=== PATIENT | female | born 1960 | race Caucasian/White ===

== ENCOUNTER → 2023-10-21 16:32 | Outpatient (REF) | payer BC, SELFPAY | LOC: HWWDC 16:32 | PROVIDERS: ATTENDING PHYSICIAN Nurse Practitioner Adult Health | DX: Z12.31 Encounter for screening mammogram for malignant neoplasm of breast (principal) | CPT/HCPCS: 77063; 77067 ==

== ENCOUNTER 2024-01-06 21:26 | Emergency (ER) | payer BC, SELFPAY ==
[2024-01-06 21:29] VITALS: BP 150/92
[2024-01-06 21:45] LABS: Urine Albumin 1+ (Neg - Trace); Urine Bilirubin Negative (Negative); Urine Character Very Cloudy (Clear); Urine Color Yellow; Urine Glucose Negative (Negative); Urine Ketone 1+ (Negative); Urine Leukocyte 2+ (Negative); Urine Nitrite Negative (Negative); Urine Occult Blood 4+ (Negative); Urine Specific Gravity 1.025 (<1.030); Urine Urobilinogen Negative (Neg - 1+)
[2024-01-06 21:50] LABS: Urine Squamous Cell 0-2 /LPF (Few)
[2024-01-06 21:52] LABS: Urine Bacteria Few (Negative); Urine White Cell 70-80 /HPF (0-5)
--- NOTE | 2024-01-06 22:37 | ED.GENMED ---
History of Present Illness
General
Chief Complaint: Urinary Symptoms
Source: patient
Exam Limitations: none
Time Seen by Provider: 01/06/24 22:05
Nursing documentation reviewed up to this point in time: agreed with
History of Present Illness
History of Present Illness:
This a pleasant 63-year-old female that presents with urinary tract infection. She has had UTI symptoms for the last few weeks. She was seen by her urologist who started her on fosfomycin. She states that that did not work. She next got Macrobid
from urgent care. She started it and was told after the culture came back it was ineffective so she was started on Augmentin. She took the full course of Augmentin and did have some brief relief, but symptoms started several days after the course
was completed. She denies fever, chills, nausea or vomiting.
Past History
Past History
ED Past Medical History: Cancer (Skin cancer), Psychiatric (Anxiety) and Other (Ovarian cysts, UTI, stress incontinence)
ED Past Surgical History: Gynecological (Hysterectomy)
Social History
Tobacco: Non-smoker
Personal:
Living: with family
Employment: Employed
Family History
Family History: Other (Noncontributory)
Review of Systems
Review of Systems
Allergies reviewed?: Yes
All Other Systems: ROS reviewed and negative except as documented in HPI and ROS
Constitutional: Reports no symptoms
EENT: Reports no symptoms
Respiratory: Reports no symptoms
Cardiac: Reports no symptoms
ABD/GI: Reports no symptoms
: Reports dysuria, frequency and urgency
Musculoskeletal: Reports no symptoms
Skin: Reports no symptoms
Neurological: Reports no symptoms
Endocrine: Reports no symptoms
Hematologic/Lymphatic: Reports no symptoms
Psychiatric: Reports anxiety
Phy Exam
General Physical Exam
General Presentation: well appearing and no apparent distress
General Skin: warm and dry
General Habitus: normal
General Mental: alert
General Hydration: appears well hydrated
ENT Exam
ENT Exam: EOMI, pharynx normal, neck supple and normocephalic
Eye Exam
Eye Exam: PERRL, cornea clear and conjunctiva normal
Cardiovascular Exam
Cardiovascular Exam: regular rate/rhythm, no edema, no murmur and normal peripheral pulses
Pulmonary Exam
Pulmonary Exam: lungs clear, no respiratory distress, no rales, no crackles, no rhonchi, no stridor, no wheezing and no cough
Neurological Exam
Neurological Exam: alert, oriented x3, no motor deficits and speech normal
Musculoskeletal Exam
Musculoskeletal Exam: full ROM and no edema
Skin Exam
Skin Exam: normal color, warm/dry, no rash and no petechia
Psychiatric Exam
Psychiatric Exam: normal mood/affect
Course
Orders/Labs/Results
Orders:
Orders
01/06/24 21:38
Urinalysis Reflex To Culture Urgent
Date Specimen was Collected: 01/06/24
Time Specimen was Collected: 21:36
Urine Microscopic Reflex Cult Urgent
Urine Culture Urgent
SULEIMAN Source: U
Specimen Description:
Date Specimen was Collected: 01/06/24
Time Specimen was Collected: 21:36
01/06/24 22:49
Ceftriaxone Sodium [Rocephin] 1,000 mg IM NOW STA
01/06/24 22:52
Sterile Water [Sterile Water For Injection] 10 ml .ROUTE .[facility]
Abnormal Lab Results
01/06/24
21:38
Urine Ketones 1+ A
(Negative)
Ur Occult Blood Reflex 4+ A
(Negative)
Leukocyte Esterase Rfl 2+ A
(Negative)
Urine RBC 11-15 A /HPF
(0-2)
Urine WBC (Reflex) 70-80 A /HPF
(0-5)
Urine Bacteria (Reflex) Few A
(Negative)
Urine Albumin (Reflex) 1+ A
(Neg - Trace)
Vital Signs
Initial and Last Documented VS:
Initial Vital Signs
Temp Pulse Resp BP Pulse Ox
98.4 F 102 24 150/92 100
01/06/24 21:29 01/06/24 21:29 01/06/24 21:29 01/06/24 21:29 01/06/24 21:29
Last Documented Vital Signs
Temp Pulse Resp BP Pulse Ox
98.4 F 102 24 150/92 100
01/06/24 21:29 01/06/24 21:29 01/06/24 21:29 01/06/24 21:29 01/06/24 21:29
*Critical Care Note
Total Time (30-74mins, 75-104mins- exclusive of procedures): Not Applicable
ED Attending Note
-
Portions of this chart may have been created with voice recognition software.� Occasional wrong word or��sound alike� substitutions may have occurred due to the inherent limitations of voice recognition software.
Discharge Plan
Departure
Patient Disposition: Home (Routine Discharge)
Date of Disposition: 01/06/24
Time of Disposition: 22:52
Patient with high blood pressure during this ER visit?: Yes
Discharge Problem:
UTI (urinary tract infection)
Instructions: Urinary Tract Infection, Adult (DC), Blood in the Urine (Hematuria), Adult (DC), BLOOD PRESSURE
Prescriptions:
New
cephalexin 500 mg tablet
500 mg PO Q12H 10 Days Qty: 20 0RF
No Action
multivitamin [One Daily Essential] 1 EACH tablet
1 ea PO DAILY
cranberry 500 MG capsule
500 mg PO DAILY
omega [id number] oil [Fish Oil] 1 EACH capsule
1 ea PO DAILY
amoxicillin-pot clavulanate 1 TABLET tablet
1 tab PO Q12 Qty: 10 0RF
lisinopril 10 MG tablet
10 mg PO DAILY Qty: 30 0RF
Referrals:
Jaki Chapman CRNP [Family Provider] -
Activity Restrictions/Additional Instructions:
[Your prescriptions were sent electronically to the pharmacy that you specified.]
It was a pleasure meeting you and taking part in your care. We hope for your continued healing and wellness.
Please read discharge instructions in their entirety. However, they are for general education and may not describe your exact diagnosis at discharge. Information on your ER visit and medical conditions were discussed with you along with appropriate
follow up information...
If indicated, please take your medications as instructed and indicated on discharge paperwork.
Please schedule a follow up appointment as directed. Call to schedule an appointment
Please return to the emergency department with ANY change in, persisting, or worsening of symptoms. If any of your symptoms do not improve, or persist, or become more severe within 6-12 hours, please return to the emergency department for further
care.
Please return to the emergency department if you develop a headache, neck pain/stiffness, fever greater than 100.4F, chest pain, shortness of breath, persistent nausea, vomiting, slurred speech, difficulty walking, numbness/tingling, weakness, signs
of infection or any other symptoms that are worrisome to you.
If you have any questions or concerns please do not hesitate to call the Hospital at or E-mail me directly at [email or web address]
Interventions
Interventions:
*Risk Screen - Suicide Last Done: 01/06/24 21:29
*General Assessment Last Done: 01/06/24 23:03
*Neglect/Abuse Screening Last Done: 01/06/24 21:29
ED- Fall Risk Assessment Last Done: 01/06/24 23:03
*ED COVID-19 Vaccine History Last Done: 01/06/24 23:03
*Nursing Disposition Last Done: 01/06/24 23:03
ED-Female Genitourinary Assessment Last Done: 01/06/24 23:02
Discharge Date and Time
Discharge Date/Time: 01/06/24 23:04
Print Language: LITHUANIAN
[2024-01-06] MEDS: ROCEPHIN 1000 MG IM (22:53)
== END 2024-01-06 23:04 | disposition home or self-care (01) ==
LOC: EMR 21:26
PROVIDERS: Emergency Medicine; EMERGENCY PHYSICIAN Student in an Organized Health Care Education/Training Program; FAMILY PHYSICIAN Nurse Practitioner Adult Health
DX: N39.0 Urinary tract infection, site not specified (principal); F41.9 Anxiety disorder, unspecified
CPT/HCPCS: 99282; 96372; 81003; 81015; 87077; 87086; 87186